=== PATIENT | female | born 1960 | race Caucasian/White ===

== ENCOUNTER 2018-02-28 09:47 | Day surgery (SDC) | payer OTHER ==
[2018-02-28] MEDS ORDERED: ONDANSETRON HCL 4 MG/2 ML SOL ONE (10:08)
[2018-02-28] MEDS ORDERED: PROPOFOL 10 MG/ML EMU IV ONE (10:08)
[2018-02-28] MEDS ORDERED: KETOROLAC TROMETHAMINE 30 MG/ML SOL ONE (10:08)
[2018-02-28] MEDS ORDERED: CEFAZOLIN SODIUM 1 GM PDS ONE (10:11)
[2018-02-28] MEDS ORDERED: FENTANYL 100MCG/2ML SOL ONE (11:23)
[2018-02-28 13:33] VITALS: BP 143/83; PULSE 66; RESP 16; TEMP 97.6; O2SAT 98
== END 2018-02-28 13:55 | disposition home or self-care (01) | DRG 563 ==
LOC: SURG 09:47
PROVIDERS: ATTEND Orthopaedic Surgery
DX: S83.231A Complex tear of medial meniscus, current injury, right knee, initial encounter (principal)
CPT/HCPCS: J0690; J1885; J2405; J3010; J2704

== ENCOUNTER 2019-06-19 13:24 | Outpatient (CLI) | payer OTHER ==
[2018-02-28 13:33] VITALS: O2SAT 98
== END 2019-06-19 13:25 | disposition home or self-care (01) | DRG 556 ==
LOC: CONVCARE 13:24
PROVIDERS: ATTEND Orthopaedic Surgery
DX: M25.561 Pain in right knee (principal)
CPT/HCPCS: 73562